=== PATIENT | female | born 1970 | race Caucasian/White ===

== ENCOUNTER 2020-08-19 06:06 | Inpatient (IN) | payer OTHER ==
[2020-08-19] MEDS ORDERED: Sodium Chloride 0.9% 1,000 ML IV ONE (06:54)
--- NOTE | 2020-08-19 07:02 | EDM.PDOC ---
"<Marilin Boggs - Last Filed: 08/19/20 07:07> ED HPI GENERAL MEDICAL PROBLEM - General Chief Complaint: Back Pain or Injury Stated Complaint: BACK PAIN, CANT MOVE LEG Time Seen by Provider: 08/19/20 06:35 Source of Information: Reports: Patient, Family, RN, RN Notes Reviewed History Limitations: Reports: No Limitations - History of Present Illness INITIAL COMMENTS - FREE TEXT/NARRATIVE: Patient is a 49-year-old female who presents to the ER with her with complaint of low back pain and shooting pains down the left leg. Patient states she saw Enrico Gonzales in the clinic on with back pain as well. She was diagnosed with UTI/kidney infection and started on Macrobid for 7 days. Patient states Thursday night she began having a temp anywhere from 99-100. Patient states Thursday the lower back became more painful. Patient states she has had a headache since last evening. States she takes propranolol for headaches and has not had headaches in several months. Patient states when she got up to go to the bathroom this morning she had much difficulty ambulating. States sharp shooting pains down the left leg, and states she feels it is larger than the right and much heavier. Patient states she did begin her menses yesterday morning as well. States pain is in her lower back wraps around into her groin and down the left thigh. Denies any history of kidney stones. States she takes a daily aspirin, as she has antiphospholipid. States she is currently doctoring for a mitral valve prolapse. Denies any other health problems. Onset: Gradual Left Leg Pain Score (Numeric/FACES): 7 - Related Data Allergies Allergy/AdvReac Type Severity Reaction Status Date / Time No Known Allergies Allergy Verified 08/19/20 06:15 Home Meds: Home Meds Propranolol HCl 40 mg PO DAILY 08/19/20 [History] nitrofurantoin macrocrystaL [Nitrofurantoin] 100 mg PO BID 08/19/20 [History] Past Medical History Cardiovascular History: Reports: Other (See Below) Other Cardiovascular History: Mitral Valve Prolapse Genitourinary History: Reports: Other (See Below) Other Genitourinary History: Ovarian Cyst Musculoskeletal History: Reports: Fibromyalgia Neurological History: Reports: Other (See Below) Other Neuro History: [place] Hematologic History: Reports: Other (See Below) Other Hematologic History: Antiphospholipid Antibody Syndrome - Past Surgical History Female Surgical History: Reports: Cystectomy, D&C Social & Family History - Tobacco Use Tobacco Use Status *Q: Never Tobacco User Second Hand Smoke Exposure: No - Caffeine Use Caffeine Use: Reports: None - Recreational Drug Use Recreational Drug Use: No ED ROS GENERAL - Review of Systems Review Of Systems: Comprehensive ROS is negative, except as noted in HPI. ED EXAM,LOWER BACK PAIN/INJURY - Physical Exam Exam: See Below Exam Limited By: No Limitations General Appearance: Alert, WD/WN, Anxious, Mild Distress Eye Exam: Bilateral Eye: EOMI, Normal Inspection Ears: Normal External Exam, Hearing Grossly Normal Nose: Normal Inspection Throat/Mouth: Normal Inspection, Normal Voice, No Airway Compromise Head: Atraumatic, Normocephalic Neck: Normal Inspection, Supple, Non-Tender, Full Range of Motion Respiratory/Chest: No Respiratory Distress, Lungs Clear, Normal Breath Sounds, No Accessory Muscle Use, Chest Non-Tender Cardiovascular: Normal Peripheral Pulses, Regular Rate, Rhythm, No Edema, No Gallop, No JVD, No Murmur, No Rub GI/Abdominal: Normal Bowel Sounds, Soft, Non-Tender (Female) Exam: Deferred Rectal (Female) Exam: Deferred Back Exam: CVA Tenderness (L), CVA Tenderness (R), Decreased Range of Motion, Paraspinal Tenderness, Vertebral Tenderness Extremities: Leg Pain (left leg), Limited Range of Motion (left leg), Increased Warmth (left leg), Redness (left leg), Other (Right calf: 42.5cm, Right thigh: 61cm, Left calf: 46.5cm, Left thigh: 65cm). No: Glen's Sign Neurological: Alert, Normal Mood/Affect, No Motor/Sensory Deficits, Oriented x 3 Psychiatric: Normal Affect, Normal Mood Skin Exam: Warm, Dry, Intact, No Rash, Erythema (left leg) Lymphatic: No Adenopathy Course - Re-Assessments/Exams Free Text/Narrative Re-Assessment/Exam: 08/19/20 07:07 Patient care passed to Dr. Keane at shift change. Departure - Departure Disposition: Admitted As Inpatient 67 Clinical Impression: Pulmonary embolism on right, Antiphospholipid antibody syndrome Deep vein thrombosis (DVT) of left lower extremity Qualifiers: Affected thrombotic vein of extremity: femoral Chronicity: acute Qualified Code(s): I82.412 - Acute embolism and thrombosis of left femoral vein - Discharge Information Forms: ED Department Discharge Sepsis Event Note (ED) - Evaluation Sepsis Screening Result: No Definite Risk <Enmanuel Keane Smith - Last Filed: 08/19/20 09:43> ED HPI GENERAL MEDICAL PROBLEM - History of Present Illness Duration: Constant, Getting Worse Location: Reports: Lower Extremity, Left Quality: Reports: Ache, Pressure Severity: Moderate Improves with: Reports: Immobilization, Rest Worsens with: Reports: Movement (Wt bearing) Associated Symptoms: Reports: No Other Symptoms Treatments L[employer]IN[employer] BOARDS: Reports: NSAIDS Social & Family History - Family History Family Medical History: No Pertinent Family History - Living Situation & Occupation Living situation: Reports: , with Family Occupation: Employed ED EXAM,LOWER BACK PAIN/INJURY - Physical Exam Exam: See Below Exam Limited By: No Limitations General Appearance: Alert, WD/WN, No Apparent Distress, Obese Eye Exam: Bilateral Eye: Normal Inspection Nose: Normal Inspection, Normal Mucosa, No Blood Throat/Mouth: Normal Inspection, Normal Lips, Normal Teeth, Normal Gums, Normal Oropharynx, Normal Voice, No Airway Compromise Head: Atraumatic, Normocephalic Neck: Normal Inspection, Supple, Non-Tender, Full Range of Motion Respiratory/Chest: No Respiratory Distress, Lungs Clear, Normal Breath Sounds, No Accessory Muscle Use, Chest Non-Tender Cardiovascular: Normal Peripheral Pulses, Regular Rate, Rhythm, No Edema, No Gallop, No JVD, No Murmur, No Rub GI/Abdominal: Normal Bowel Sounds, Soft, Non-Tender, No Organomegaly, No Distent ion, No Abnormal Bruit, No Mass Back Exam: Full Range of Motion, CVA Tenderness (R), Paraspinal Tenderness. No: Vertebral Tenderness Extremities: Normal Capillary Refill, Glen's Sign (Left), Leg Pain (Left), Redness (with swelling/edema: Left ) Neurological: Alert, Normal Mood/Affect, Normal Dorsiflexion, CN II-XII Intact, Normal Plantar Flexion, No Motor/Sensory Deficits, Oriented x 3 Psychiatric: Normal Mood Skin Exam: Warm, Dry, Intact, Erythema Course - Vital Signs Last Recorded V/S: Last Vital Signs Temp 96.8 F L 08/19/20 09:29 Pulse 71 08/19/20 09:29 Resp 16 08/19/20 09:29 BP 127/68 08/19/20 09:29 Pulse Ox 100 08/19/20 09:29 - Orders/Labs/Meds Orders: Active Orders 24 hr Category Date Time Status CULTURE BLOOD [BC] Stat Lab 08/19/20 07:05 Results CULTURE BLOOD [BC] Stat Lab 08/19/20 07:10 Received Blood Culture x2 Reflex Set [OM.PC] Stat Oth 08/19/20 06:53 Ordered Labs: Laboratory Tests 08/19/20 08/19/20 08/19/20 Range/Units 07:10 07:10 07:10 WBC 11.0 H (5.0-10.0) 10^3/uL RBC 4.29 (4.2-5.4) 10^6/uL Hgb 13.0 (12.0-16.0) g/dL Hct 40.3 (37.0-47.0) % MCV 93.9 (80-100) fL MCH 30.3 (27.0-34.0) pg MCHC 32.3 L (33.0-35.0) g/dL Plt Count 208 (150-450) 10^3/uL Neut % (Auto) 71.6 (42.2-75.2) % Lymph % (Auto) 14.9 L (20.5-50.1) % [place] % (Auto) 9.7 H (2-8) % Eos % (Auto) 3.5 H (1.0-3.0) % Baso % (Auto) 0.3 (0.0-1.0) % PT 9.5 (9.0-12.0) SEC INR 0.9 (0.9-1.2) D-Dimer, Quantitative > 5000 H (0-400) ng/mL Sodium 139 (136-145) mmol/L Potassium 4.2 (3.5-5.1) mmol/L Chloride 104 (98-107) mmol/L Carbon Dioxide 24 (21-32) mmol/L Anion Gap 15.2 H (7-13) mEq/L BUN 19 H (7-18) mg/dL Creatinine 0.98 (0.55-1.02) mg/dL Est Cr Clr Drug Dosing 65.72 mL/min Estimated GFR (MDRD) > 60 BUN/Creatinine Ratio 19.4 (No establ ref range) Glucose 111 H (70-99) mg/dL Lactic Acid (0.4-2.0) mmol/L Calcium 9.2 (8.5-10.1) mg/dL Total Bilirubin 0.8 (0.2-1.0) mg/dL AST 15 (15-37) U/L ALT 20 (14-59) U/L Alkaline Phosphatase 99 (46-116) U/L C-Reactive Protein 4.8 H (0.0-0.9) mg/dL Total Protein 7.4 (6.4-8.2) g/dL Albumin 3.2 L (3.4-5.0) g/dL Globulin 4.2 Albumin/Globulin Ratio 0.76 Urine Color (YELLOW) Urine Appearance (CLEAR) Urine pH (5.0-9.0) Ur Specific [place] (1.005-1.030) Urine Protein (NEGATIVE) Urine Glucose (UA) (NEGATIVE) Urine Ketones (NEGATIVE) Urine Occult Blood (NEGATIVE) Urine Nitrite (NEGATIVE) Urine Bilirubin (NEGATIVE) Urine Urobilinogen (0.2-1.0) mg/dL Ur Leukocyte Esterase (NEGATIVE) Urine RBC /HPF Urine WBC (0-5/HPF) /HPF Ur Epithelial Cells (NOT SEEN) /HPF Urine Bacteria (0-FEW/HPF) /HPF Urine Mucus (NOT SEEN) /LPF 08/19/20 08/19/20 Range/Units 07:10 08:33 WBC (5.0-10.0) 10^3/uL RBC (4.2-5.4) 10^6/uL Hgb (12.0-16.0) g/dL Hct (37.0-47.0) % MCV (80-100) fL MCH (27.0-34.0) pg MCHC (33.0-35.0) g/dL Plt Count (150-450) 10^3/uL Neut % (Auto) (42.2-75.2) % Lymph % (Auto) (20.5-50.1) % [place] % (Auto) (2-8) % Eos % (Auto) (1.0-3.0) % Baso % (Auto) (0.0-1.0) % PT (9.0-12.0) SEC INR (0.9-1.2) D-Dimer, Quantitative (0-400) ng/mL Sodium (136-145) mmol/L Potassium (3.5-5.1) mmol/L Chloride (98-107) mmol/L Carbon Dioxide (21-32) mmol/L Anion Gap (7-13) mEq/L BUN (7-18) mg/dL Creatinine (0.55-1.02) mg/dL Est Cr Clr Drug Dosing mL/min Estimated GFR (MDRD) BUN/Creatinine Ratio (No establ ref range) Glucose (70-99) mg/dL Lactic Acid 1.9 (0.4-2.0) mmol/L Calcium (8.5-10.1) mg/dL Total Bilirubin (0.2-1.0) mg/dL AST (15-37) U/L ALT (14-59) U/L Alkaline Phosphatase (46-116) U/L C-Reactive Protein (0.0-0.9) mg/dL Total Protein (6.4-8.2) g/dL Albumin (3.4-5.0) g/dL Globulin Albumin/Globulin Ratio Urine Color Buffy (YELLOW) Urine Appearance Cloudy (CLEAR) Urine pH 5.5 (5.0-9.0) Ur Specific [place] >= 1.030 (1.005-1.030) Urine Protein 100 H (NEGATIVE) Urine Glucose (UA) Negative (NEGATIVE) Urine Ketones Trace H (NEGATIVE) Urine Occult Blood Large H (NEGATIVE) Urine Nitrite Negative (NEGATIVE) Urine Bilirubin Small H (NEGATIVE) Urine Urobilinogen 0.2 (0.2-1.0) mg/dL Ur Leukocyte Esterase Negative (NEGATIVE) Urine RBC 75-100 H /HPF Urine WBC 0-5 (0-5/HPF) /HPF Ur Epithelial Cells Moderate H (NOT SEEN) /HPF Urine Bacteria Moderate H (0-FEW/HPF) /HPF Urine Mucus Moderate H (NOT SEEN) /LPF Meds: Medications Discontinued Medications Generic Name Dose Route Start Last Admin Trade Name Freq PRN Reason Stop Dose Admin Hydromorphone HCl 1 mg 08/19/20 09:31 Hydromorphone 1 Mg/Ml Syringe IVPUSH 08/19/20 09:32 ONETIME ONE Sodium Chloride 1,000 mls @ 999 mls/hr 08/19/20 06:54 08/19/20 07:19 Normal Saline IV 08/19/20 07:54 999 mls/hr .BOLUS ONE Administration Iopamidol 100 ml 08/19/20 08:37 08/19/20 09:17 Iopamidol 755 Mg/Ml 100 Ml Bottle IVPUSH 08/19/20 08:38 79 ml ONETIME ONE Administration Ondansetron HCl 4 mg 08/19/20 09:31 Ondansetron 4 Mg/2 Ml Sdv IV 08/19/20 09:32 ONETIME ONE - Radiology Interpretation Free Text/Narrative:: [facility] Final Radiology Report with Addendum Call: [phone] assistance Online chat: [email or web address] Name: MOO SILVERMAN Age: 49Years F Date: 08/19/2020 SSN: -- : [id number] Study: US VENOUS DOPPLER LWR EXT LT Requesting Physician: ENMANUEL KEANE Images: 24 Addl Studies: Provided Clinical History: Left leg pain/swelling Contrast: Contrast Medium: Contrast Amount: Contrast Method: Page 1 of 2 Addendum created by Abraham Zarate MD on 08/19/2020 9:26 AM Central Time ([place] & [place]): This report contains findings that may be critical to patient care. The findings were verbally communicated via telephone conference with ENMANUEL KEANE at 08/19/2020 9:26 AM CDT. The findings were acknowledged and understood. Initial Report created on 08/19/2020 9:13 AM Central Time ([place] & [place]g): PROCEDURE INFORMATION: Exam: US Duplex Left Lower Extremity Veins, Limited Exam date and time: 08/19/2020 7:49 AM Age: 49 years old Clinical indication: Pain; Swelling (edema) of limb; Lower extremity, left; Leg, upper and leg, lower; Additional info: Left leg pain/swelling TECHNIQUE: Imaging protocol: Real-time Duplex ultrasound of the Left Lower Extremity with 2-D kan scale, color Doppler flow and spectral waveform analysis with image documentation. Limited exam focused on the left lower extremity veins. COMPARISON: No relevant prior studies available. FINDINGS: Left deep veins: Thrombus noted within the left common femoral vein with associa joe diminished compression. The thrombus extends to the superficial femoral vein and the popliteal vein. Minimal to no flow noted throughout the deep venous system Soft tissues: Unremarkable. IMPRESSION: MOO SILVERMAN | Final Radiology Report CONFIDENTIALITY STATEMENT This report is intended only for use by the referring physician, and only in accordance with law. If you received this in error, call [phone]. Page 2 of 2 Extensive deep venous thrombosis of the left lower extremity Thank you for allowing us to participate in the care of your patient. Dictated and Authenticated by: Abraham Zarate MD 08/19/2020 9:13 AM Central Time ([place] & Lg) [facility] Final Radiology Report with Addendum Call: [phone] assistance Online chat: [email or web address] Name: MOO SILVERMAN Age: 49Years F Date: 08/19/2020 SSN: -- : [id number] Study: CT CHEST W CONT Requesting Physician: ENMANUEL KEANE Images: 408 Addl Studies: Provided Clinical History: DVT L leg, D-dimer >5000, PE study Contrast: With Contrast Medium: [id number] Contrast Amount: 79 mL Contrast Method: Intravenous (IV) Page 1 of 2 Addendum created by Abraham Zarate MD on 08/19/2020 9:26 AM Central Time ([place] & [place]): This report contains findings that may be critical to patient care. The findings were verbally communicated via telephone conference with ENMANUEL KEANE at 08/19/2020 9:26 AM CDT. The findings were acknowledged and understood. Initial Report created on 08/19/2020 9:22 AM Central Time ([place] & Lg): PROCEDURE INFORMATION: Exam: CT Chest With Contrast; Diagnostic Exam date and time: 08/19/2020 8:51 AM Age: 49 years old Clinical indication: Other: Dvt L leg, d-dimer >5000, pe study TECHNIQUE: Imaging protocol: Diagnostic computed tomography of the chest with contrast. Radiation optimization: All CT scans at this facility use at least one of these dose optimization techniques: automated exposure control; mA and/or kV adjustment per patient size (includes targeted exams where dose is matched to clinical indication); or iterative reconstruction. Contrast material: [id number]; Contrast volume: 79 ml; Contrast route: INTRAVENOUS (IV); COMPARISON: No relevant prior studies available. FINDINGS: Lungs: Minimal ground-glass airspace disease within the medial aspect of the right upper lobe. Pleural spaces: Unremarkable. No pneumothorax. No pleural effusion. Heart: There is mild RV strain with the RV/LV ratio of 4.7/4.4. Mediastinal space: There is circumferential thickening of the distal esophagus which may be due to esophagitis or gastroesophageal reflux. MOO SILVERMAN | Final Radiology Report CONFIDENTIALITY STATEMENT This report is intended only for use by the referring physician, and only in accordance with law. If you received this in error, call [phone]. Page 2 of 2 Pulmonary arteries: There are pulmonary emboli noted within the right lower lobe pulmonary arteries. No saddle embolus. Aorta: Unremarkable. No aortic aneurysm. Veins: Prominent azygos vein. Lymph nodes: Unremarkable. No enlarged lymph nodes. Bones/joints: Unremarkable. No acute fracture. Soft tissues: Unremarkable. IMPRESSION: 1. There are pulmonary emboli noted within the right lower lobe pulmonary arteries. 2. There is mild RV strain with the RV/LV ratio of 4.7/4.4. Thank you for allowing us to participate in the care of your patient. Dictated and Authenticated by: Abraham Zarate MD 08/19/2020 9:22 AM Central Time ([place] & Lg) - Re-Assessments/Exams Free Text/Narrative Re-Assessment/Exam: 08/19/20 09:[address] Roy, he agrees to admit the pt and will order the initial anticoagulation tx. Departure - Departure Time of Disposition: 09:41 (admitted to Dr. Roy) Condition: Fair - Discharge Information *PRESCRIPTION DRUG MONITORING PROGRAM REVIEWED*: Not Applicable *COPY OF PRESCRIPTION DRUG MONITORING REPORT IN PATIENT YVETTE: Not Applicable Sepsis Event Note (ED) - Focused Exam Vital Signs: Vital Signs Temp Pulse Resp BP Pulse Ox 08/19/20 09:29 96.8 F L 71 16 127/68 100 08/19/20 06:17 96.8 F L 79 20 138/90 97"
[2020-08-19 07:36] LABS: ANION GAP 15.2 mEq/L (7-13); CHLORIDE,CL 104 mmol/L (98-107); SODIUM,NA 139 mmol/L (136-145)
[2020-08-19] MEDS ORDERED: Iopamidol 755 Mg/ML 100 ML Bottle IVPUSH ONE (08:37)
--- NOTE | 2020-08-19 09:14 | US ---
PROCEDURE INFORMATION: Exam: US Duplex Left Lower Extremity Veins, Limited Exam date and time: 08/19/2020 7:49 AM Age: 49 years old Clinical indication: Pain; Swelling (edema) of limb; Lower extremity, left; Leg, upper and leg, lower; Additional info: Left leg pain/swelling TECHNIQUE: Imaging protocol: Real-time Duplex ultrasound of the Left Lower Extremity with 2-D akn scale, color Doppler flow and spectral waveform analysis with image documentation. Limited exam focused on the left lower extremity veins. COMPARISON: No relevant prior studies available. FINDINGS: Left deep veins: Thrombus noted within the left common femoral vein with associated diminished compression. The thrombus extends to the superficial femoral vein and the popliteal vein. Minimal to no flow noted throughout the deep venous system Soft tissues: Unremarkable. IMPRESSION: Extensive deep venous thrombosis of the left lower extremity
--- NOTE | 2020-08-19 09:22 | CT ---
PROCEDURE INFORMATION: Exam: CT Chest With Contrast; Diagnostic Exam date and time: 08/19/2020 8:51 AM Age: 49 years old Clinical indication: Other: Dvt L leg, d-dimer >5000, pe study TECHNIQUE: Imaging protocol: Diagnostic computed tomography of the chest with contrast. Radiation optimization: All CT scans at this facility use at least one of these dose optimization techniques: automated exposure control; mA and/or kV adjustment per patient size (includes targeted exams where dose is matched to clinical indication); or iterative reconstruction. Contrast material: [id number]; Contrast volume: 79 ml; Contrast route: INTRAVENOUS (IV); COMPARISON: No relevant prior studies available. FINDINGS: Lungs: Minimal ground-glass airspace disease within the medial aspect of the right upper lobe. Pleural spaces: Unremarkable. No pneumothorax. No pleural effusion. Heart: There is mild RV strain with the RV/LV ratio of 4.7/4.4. Mediastinal space: There is circumferential thickening of the distal esophagus which may be due to esophagitis or gastroesophageal reflux. Pulmonary arteries: There are pulmonary emboli noted within the right lower lobe pulmonary arteries. No saddle embolus. Aorta: Unremarkable. No aortic aneurysm. Veins: Prominent azygos vein. Lymph nodes: Unremarkable. No enlarged lymph nodes. Bones/joints: Unremarkable. No acute fracture. Soft tissues: Unremarkable. IMPRESSION: 1. There are pulmonary emboli noted within the right lower lobe pulmonary arteries. 2. There is mild RV strain with the RV/LV ratio of 4.7/4.4.
[2020-08-19] MEDS ORDERED: Ondansetron 4 MG/2 ML SDV IV ONE (09:31)
[2020-08-19] MEDS ORDERED: HYDROmorphone 1 MG/ML Syringe IVPUSH ONE (09:31)
[2020-08-19] MEDS ORDERED: Sodium Chloride 0.9% 10 ML Syringe FLUSH PRN (09:55)
[2020-08-19] MEDS ORDERED: Acetaminophen 325 MG Tab PO PRN (09:55)
[2020-08-19] MEDS ORDERED: Ondansetron 4 MG in Sodium Chloride 0.9% 50 ML IV PRN (09:57)
[2020-08-19] MEDS ORDERED: Enoxaparin 60 MG/0.6 ML Syringe SUBCUT SCH (10:00)
[2020-08-19] MEDS ORDERED: cefTRIAXone 1 GM in Sodium Chloride 0.9% 50 ML IV SCH (10:00)
--- NOTE | 2020-08-19 10:03 | PCM.SN.2 ---
- Free Text/Narrative Note: START OF DOCTOR EMAMIS HISTORY AND PHYSICAL / CONSULTATION NOTE Chief Complaint: Lower back pain History of Present Illness: The patient is a 49-year-old female who presents with chief point of lower back pain. The back pain started approximately 1 week prior to hospitalization. Is believed to be urinary tract infection for which she was started on antibiotics approximately 72 hours prior to presentation to the emergency department. She states the back pain was in a bandlike fashion in her lower back which worsened on the right side. She had an onset of bilateral inguinal pain as well as pain with ambulation as well as left lower extremity edema. With the last 24 hours she has developed paresthesia of left lower extremity. She also admits to onset of fever and rigors. The emergency department she was found to have left lower extremity DVT as well as pulmonary embolus. She presents for further evaluation Surgical History: Right breast biopsy, D&C, left nephrectomy, tubal ligation, wisdom tooth extraction x3 surgeries Family History: Cancer, stroke, coronary disease Social History: Tobacco: Never Alcohol: Rare Caffeine: Coffee, cola Drugs: Never Allergies: No known drug allergies Code Status: Full Pertinent Laboratory Results / Pertinent Radiology Results / Pertinent Diagnostic Results / Pertinent Vital Signs: Blood pressure 120/60, pulse 71, respiration 16, temperature 96.8 degrees, 100% room air, white blood cell count 11 Physical Examination: General: -Alert -No acute distress -No dyspnea -No tachypnea -Obese Head: -Atraumatic -Normocephalic Eyes: -Pupils equally round and reactive to light and accommodation -Extraocular muscles intact Neurological: -Cranial nerves II-XII intact Neck: -No jugular venous distention -No thyromegaly -No cervical lymphadenopathy Heart: -Regular rate -Regular rhythm -No murmurs -No gallops -No rubs Lungs: -No wheeze -No rhonchi -No rales Abdomen: -Normal bowel sounds in all four quadrants -No rebound -No guarding -No tenderness Extremities: -2/4 pulse in all four extremities -No clubbing -No cyanosis -Left lower extremity enlarged compared with right lower extremity -No calf tenderness present bilaterally -Negative Homans sign bilaterally Musculoskeletal: -5/5 bilateral upper extremity strength -5/5 bilateral lower extremity strength -Sensorium of bilateral upper extremities are equal and intact -Sensorium of bilateral lower extremities are equal and intact Additional Details / Additional Findings / Exceptions / Miscellaneous: Assessment / Plan: Acute pulmonary embolus/left lower extremity DVT. Patient has known history of antiphospholipid syndrome. Lovenox 110 mg subcutaneously every 12 hours for approximately 24 hours then Eliquis 10 mg p.o. twice daily x7 days then 5 mg p.o. twice daily Antiphospholipid syndrome. Fibromyalgia Distal esophageal thickening. Protonix 40 mg p.o. twice daily. Outpatient follow-up with gastroenterology upon discharge Urinary tract infection. Rocephin 1 g IV daily History of Sher's palsy Chronic headache. Propranolol 40 mg p.o. daily Hypertension. Atenolol 40 mg p.o. daily Obesity. Patient becomes regarding lifestyle modification DVT prophylaxis. Lovenox 100 mg subcutaneously every 12 hours Disposition: Anticipate discharge in 24 to 48 hours END OF DOCTOR EMAMIS HISTORY AND PHYSICAL / CONSULTATION NOTE
[2020-08-19] MEDS ORDERED: cefTRIAXone 1 GM Vial IVPUSH SCH (11:00)
[2020-08-19] MEDS ORDERED: Acetaminophen/HYDROcodone 325-5 MG Tab PO PRN (13:36)
[2020-08-19] MEDS ORDERED: Famotidine 20 MG Tab PO PRN (13:37)
[2020-08-19] MEDS ORDERED: Pantoprazole 40 MG Tab.CR PO SCH (16:00)
[2020-08-19] MEDS ORDERED: Morphine 2 MG/ML SYRINGE IVPUSH PRN (17:47)
--- NOTE | 2020-08-19 18:30 | PCM.SN.2 ---
- Free Text/Narrative Note: START OF DOCTOR EMAM[facility] DISCHARGE SUMMARY Date of Admission: August 19, 2020 Date of Discharge: 6:28 PM on August 19, 2020 Primary Diagnosis: Acute pulmonary embolus and left lower extremity DVT Secondary Diagnosis: Antiphospholipid syndrome Fibromyalgia Distal esophageal thickening Urinary tract infection History of Sher's palsy Chronic headache Hypertension Obesity Consultations: None Condition on Discharge: Stable Disposition: The patient will be transferred to [facility] under the care of the hospitalist. I have discussed the patient's case with the interventional radiologist, Dr. Main, at this hospital who will be evaluating the patient. It is recommended that hematology/oncology be consulted as well for the patient history of antiphospholipid syndrome. Upon discharge it is recommended that the patient should be referred to gastroenterology given finding of distal esophagea l thickening on CT of the chest with IV contrast Depending on transfer time of the patient from this facility, if it is not performed prior to transfer, patient requires CT of the abdomen pelvis with IV contrast for further evaluation of clot burden Discharge Medications: Rocephin 1 g IV daily Lovenox 110 mg subcutaneously every 12 hours Protonix 40 mg p.o. twice daily Propranolol 40 mg p.o. nightly END OF DOCTOR EMAM[facility] DISCHARGE SUMMARY
[2020-08-19] MEDS ORDERED: Propranolol 20 MG Tab PO SCH (21:00)
[2020-08-20] MEDS ORDERED: PROPRANOLOL HCL 40 MG PO SCH (09:00)
== END 2020-08-19 19:16 | DRG 299 ==
LOC: DL.ED 06:06 → DL.MS 09:48
PROVIDERS: ADMIT Internal Medicine; ATTEND Internal Medicine
DX: I82.412 Acute embolism and thrombosis of left femoral vein (principal); I26.99 Other pulmonary embolism without acute cor pulmonale; D68.61 Antiphospholipid syndrome; N39.0 Urinary tract infection, site not specified; M79.7 Fibromyalgia; R51.9 Headache, unspecified; I10 Essential (primary) hypertension; Z20.822 Contact with and (suspected) exposure to COVID-19; E66.9 Obesity, unspecified; Z98.51 Tubal ligation status; Z90.5 Acquired absence of kidney; Z28.82 Immunization not carried out because of caregiver refusal
CPT/HCPCS: 36415; 71260; 80053; 81001; 83605; 85025; 85379; 85610; 86140; 87040; 93971; A9270-GY; J0696; J1170; J1650; J2270; J2405; J7030; Q9967; U0002